=== PATIENT | female | born 1960 | race Caucasian/White ===

== ENCOUNTER 2018-05-21 06:45 | Outpatient (CLI) | payer BC, SELFPAY ==
--- NOTE | 2018-05-21 13:46 | DI.RAD_ITS ---
SYMPTOMS/DIAGNOSIS: CHRONIC RT KNEE PAIN, M25.561, G89.29 RIGHT KNEE: The bony structures are normally mineralized. The joint space is intact. A small area of ossification is noted adjacent to the superior pole of the patella. There is an apparent large joint effusion. There is no trauma history and there is on these images no evidence of a fracture or dislocation.
== END 2018-05-21 07:05 ==
PROVIDERS: PCP Family Medicine; Visit Provider Family Medicine
DX: M25.561 Pain in right knee (principal); G89.29 Other chronic pain; M25.461 Effusion, right knee
CPT/HCPCS: 73562

== ENCOUNTER 2018-06-06 11:38 | Outpatient (CLI) | payer BC, SELFPAY ==
[2018-06-06 13:09] LABS: Abs Immature Grans 0.01 k/cumm (0.0-0.09); Absolute Basophil Count 0.03 k/cumm (0.0-0.2); Absolute Eosinophil Count 0.17 k/cumm (0.0-0.7); Absolute Lymphocyte Count 1.13 k/cumm (1.2-3.4); Absolute Monocyte Count 0.37 k/cumm (0.11-0.7); Absolute Neutrophil Count 4.09 k/cumm (1.2-6.7); Basophils % 0.5; Eosinophils % 2.9; HCT 38.4 % (36.0-46.0); HGB 12.7 g/dL (12.0-15.5); Immature Grans % 0.2; Lymphocytes % 19.5; Mean Corp. HGB Concentration 33.1 g/dL (32.0-36.0); Mean Corpuscular Hemoglobin 31.6 pg (27.0-33.0); Mean Corpuscular Volume 95.5 fL (80-95); Mean Platelet Volume 10.9 fL (8.0-11.0); Monocytes % 6.4; Neutrophils % 70.5; Platelet Count 226 x1000/uL (130-400); RBC 4.02 m/cumm (4.00-5.20); RBC Distribution Width 12.1 % (11.7-14.6)
[2018-06-06 13:46] LABS: ESR 16 MM/HR (0-30)
[2018-06-06 13:59] LABS: C-Reactive Protein 0.08 mg/dL (0.0-0.3)
[2018-06-09 10:08] LABS: Lyme Ab w Rflx to Lyme Confirm Negative
== END 2018-06-06 11:58 ==
PROVIDERS: PCP Family Medicine; Visit Provider Family Medicine
DX: M25.561 Pain in right knee (principal); M25.461 Effusion, right knee
CPT/HCPCS: 85652; 85025; 86140; 86618

== ENCOUNTER 2018-06-11 11:05 | Outpatient (CLI) | payer BC, SELFPAY ==
--- NOTE | 2018-06-11 10:59 | DI.RAD_ITS ---
SYMPTOM/DIAGNOSIS: RT KNEE PAIN RIGHT KNEE: Comparison is made with 01/18/18. The joint effusion appears to have decreased in size. Again noted is a small bony density just superior to the upper pole of the patella. There is mild narrowing of the medial femoral tibial joint space and mild periarticular spurring.
== END 2018-06-11 11:25 ==
PROVIDERS: PCP Family Medicine; Visit Provider Physician Assistant
DX: M25.561 Pain in right knee (principal); M25.461 Effusion, right knee
CPT/HCPCS: 73562

== ENCOUNTER 2018-06-11 12:56 | Outpatient (REF) | payer BC, SELFPAY ==
[2018-06-11 14:01] LABS: Source R KNEE
[2018-06-11 14:02] LABS: Clarity CLEAR; Mononuclear Cells 90 % (0-0); Nucleated Cells 438 /MM3 (0-0); Polynuclear Cells 10 % (0-0)
[2018-06-11 14:03] LABS: Other Cells 2 0 (0-0)
== END 2018-06-11 13:16 ==
LOC: LBN 12:56
PROVIDERS: PCP Family Medicine; Visit Provider Student in an Organized Health Care Education/Training Program
DX: M25.461 Effusion, right knee (principal)
CPT/HCPCS: 87070; 87205; 89051; 89060

== ENCOUNTER 2020-08-22 11:32 | Outpatient (REF) | payer BC, SELFPAY ==
--- NOTE | 2020-08-22 09:20 | PAPFT_PTH ---
PATIENT: Nurys Kent LOC: [facility] U#:[id number] AGE/SX: 60/F ROOM: RE08/22/[address]: Marycarmen Natarajan APRN : 1960 BED: DIS: 08/22/2020 SPEC #: [id number] RECD: 08/22/20 12:58 STATUS: VIJAY REDiony #: [id number] JANEY: 08/22/20 09:[address]: Marycarmen Natarajan DEPT: [facility] Cytology RECD BY: Sujatha Daniels Tissues: 1 - CX/ENDOCX FOR PAP SMEARS Procedures: PAP THIN PREP/[facility] Screening HPV DNA PROBE Comments: [id number]
== END 2020-08-22 11:33 | disposition home or self-care (01) ==
LOC: LBN 11:32
DX: Z12.4 Encounter for screening for malignant neoplasm of cervix (principal); Z11.51 Encounter for screening for human papillomavirus (HPV)
CPT/HCPCS: 88142; 87624

== ENCOUNTER 2020-08-31 03:00 | Outpatient (CLI) | payer BC, SELFPAY ==
[2020-08-31 09:26] LABS: ALT 22 U/L (14-59); AST 19 U/L (15-37); Albumin 3.9 g/dL (3.4-5.0); Alkaline Phosphatase 96 U/L (46-116); Anion Gap 5.6 mmol/L (3-11); BUN 25 mg/dL (7-18); Bilirubin, Total 0.8 mg/dL (0.2-1.0); CO2 27.4 mmol/L (21.0-32.0); CREATININE 1.1 mg/dL (0.55-1.02); Calcium 9.4 mg/dL (8.5-10.1); Chloride 107 mmol/L (98-107); Estimated GFR 51.02 (mL/min/1.73m2); Glucose 90 mg/dL (74-106); Potassium 4.6 mmol/L (3.5-5.1); Sodium 140 mmol/L (136-145); Total Protein 7.2 g/dL (6.4-8.2)
== END 2020-08-31 03:01 | disposition home or self-care (01) ==
LOC: LBO 03:00
DX: Z00.00 Encounter for general adult medical examination without abnormal findings (principal); Z13.228 Encounter for screening for other metabolic disorders
CPT/HCPCS: 36415; 80053

== ENCOUNTER 2022-11-14 22:12 | Outpatient (REF) | payer BC, SELFPAY ==
[2022-11-14 22:50] LABS: Anion Gap 11.7 mmol/L (3-11); BUN 20 mg/dL (7-18); CO2 23.3 mmol/L (21.0-32.0); Calcium 9.2 mg/dL (8.5-10.1); Calculated LDL 133 mg/dL (<100); Chloride 107 mmol/L (98-107); Cholesterol 225 mg/dL (<200); Estimated GFR 64.49 (mL/min/1.73m2); Glucose 151 mg/dL (74-106); HDL Cholesterol 71 mg/dL (40-60); Potassium 4.1 mmol/L (3.5-5.1); Sodium 142 mmol/L (136-145); Triglyceride 105 mg/dL (<150)
== END 2022-11-14 22:13 | disposition home or self-care (01) ==
LOC: LBN 22:12
PROVIDERS: PCP Nurse Practitioner Family; Visit Provider Nurse Practitioner Family
DX: I10 Essential (primary) hypertension (principal); Z13.220 Encounter for screening for lipoid disorders
CPT/HCPCS: 80048; 80061

== ENCOUNTER 2023-11-27 05:09 | Outpatient (CLI) | payer BC, SELFPAY ==
[2023-11-27 13:07] LABS: Hemoglobin A1C 5.6 % (<5.7)
== END 2023-11-27 05:10 | disposition home or self-care (01) ==
PROVIDERS: PCP Nurse Practitioner Family; Visit Provider Nurse Practitioner Family
DX: R73.9 Hyperglycemia, unspecified (principal)
CPT/HCPCS: 36415; 83036

== ENCOUNTER 2024-04-15 16:25 | Outpatient (CLI) | payer BC, SELFPAY ==
--- NOTE | 2024-04-15 16:15 | DI.RAD_ITS ---
Exam(s) XR WRIST LT COMP NAVICULAR EXAM: XR WRIST LT COMP NAVICULAR CLINICAL HISTORY: M25.532 Pain in left wrist, evaluate fx. TECHNIQUE: 2D digital imaging was performed of the left wrist. Four images were obtained. Scaphoid , PA, oblique and lateral views were obtained. COMPARISON: No exams were available for comparison FINDINGS: BONES: No acute fracture is present. No bony destructive lesion is seen. JOINTS: The carpal bones are normally aligned. There are mild degenerative changes seen at the 1st ca rpometacarpal joint. SOFT TISSUE: Normal. IMPRESSION: No definite acute fracture or dislocation. If symptoms persist, a follow-up examination in 7-14 days may be obtained for re-evaluation. DATA REPOSITORY: RADIATION DOSE DELIVERED:
--- NOTE | 2024-04-15 16:56 | DI.VRAD_ITS ---
PROCEDURE INFORMATION: Exam: XR Left Wrist Exam date and time: 04/15/2024 4:35 PM Age: 64 years old Clinical indication: Other: Pain lt wrist eval FX TECHNIQUE: Imaging protocol: Radiologic exam of the left wrist. Views: 3 or more views. COMPARISON: No relevant prior studies available. FINDINGS: Bones/joints: Mild degenerative changes of the 1st metacarpal carpal joint. No evidence for acute fracture or dislocation. Soft tissues: Unremarkable. IMPRESSION: No evidence for acute bony injury. If clinical symptoms persist recommend followup film in 7-10 days. Dictated and Authenticated by: Tess Mcallister MD. Ordering:JOELLE Smiley MD
== END 2024-04-15 16:45 ==
LOC: DI 16:28
PROVIDERS: PCP Nurse Practitioner Family; Visit Provider Nurse Practitioner Family
DX: M25.532 Pain in left wrist (principal)
CPT/HCPCS: 73110